=== PATIENT | male | born 1960 | race Two or more races ===

== ENCOUNTER 2017-01-29 06:55 | Inpatient (IN) | payer OTHER ==
[~2017-01-29] VITALS: Ht 172.7 cm; Wt 81.2 kg
[2017-01-29] MEDS ORDERED: oxyCODONE HCL SR 10MG TAB.SR.12H PO ONE (07:52)
[2017-01-29] MEDS ORDERED: CELECOXIB 100 MG CAPSULE ONE (07:52)
[2017-01-29] MEDS ORDERED: ACETAMINOPHEN 325 MG TABLET ONE (07:52)
[2017-01-29] MEDS ORDERED: CEFAZOLIN SODIUM/DEXTROSE,ISO 50 ML IV ONE (07:53)
[2017-01-29] MEDS ORDERED: KETOROLAC TROMETHAMINE INJ 30 MG/ML VIAL ONE (09:11)
[2017-01-29] MEDS ORDERED: BACITRACIN 50000 UNITS/VIAL ONE (09:11)
[2017-01-29] MEDS ORDERED: BUPIVACAINE 0.5 % PF 150 MG/30 ML VIAL ONE (09:11)
[2017-01-29] MEDS ORDERED: MIDAZOLAM HCL 2 MG/2ML VIAL ONE (09:44)
[2017-01-29] MEDS ORDERED: FENTANYL PF 100MCG/2ML AMPUL ONE ×3 (09:44→11:50)
[2017-01-29] MEDS ORDERED: TRANEXAMIC ACID 3,000 MG in SODIUM CHLORIDE IRRIG SOLUTION 70 ML IR ONE (10:30)
[2017-01-29 12:30] VITALS: BP 116/70
[2017-01-29] MEDS ORDERED: BISACODYL SUPP (10 MG) 10 MG/SUPP.RECT SUPP.RECT RC PRN (12:30)
[2017-01-29] MEDS ORDERED: ZOLPIDEM TARTRATE 5 MG TABLET PO PRN (12:30)
[2017-01-29] MEDS ORDERED: DOCUSATE SODIUM 250 MG CAPSULE PO PRN (12:30)
[2017-01-29] MEDS ORDERED: ACETAMINOPHEN 325 MG TABLET PO PRN (12:30)
[2017-01-29] MEDS ORDERED: HYDROCODONE/APAP 5/325MG 1 EACH TABLET PO PRN (12:30)
[2017-01-29] MEDS ORDERED: SENNOSIDES 8.6 MG TABLET PO PRN (12:30)
--- NOTE | 2017-01-29 12:30 | NUR ---
ADMITTION RN NOTES3 Admitted from OR, S/P left total hip anthroplasty done by David Crane. Alert and oriented in stable condition. at bedside. No SOB noted. Breathing even , non labored. No sign of distress noted. Left hip sx incision with dressing intact, clean , no drainage noted. With bhatti catheter intact, yellow, no sediments, no blood noted. IV site on right wrist, patent, no s/sx of infiltration noted. Call light placed within reach. Needs attended. Will continue to monitor.
[2017-01-29] MEDS: ONDANSETRON HCL/PF 4 MG/2 ML VIAL IVP PRN (13:09)
[2017-01-29] MEDS: MORPHINE SULFATE INJ 4 MG/ML DISP.SYRIN IV PRN ×2 (14:28→17:51)
[2017-01-29] MEDS: IV LR 1000 ML 1,000 ML IV PRN (14:37)
[2017-01-29 16:00] VITALS: BP 149/81
[2017-01-29] MEDS: ANCEF 1 GM/50 ML D5W IV SCH ×2 (18:00)
--- NOTE | 2017-01-29 19:06 | NUR ---
MS RN CLOSING NOTES Patient alert and oriented in stable condition. at bedside. No SOB noted. Breathing even , non labored. No sign of distress noted. Left hip sx incision with dressing intact, clean , no drainage noted. Katz catheter intact, yellow, no sediments noted. IV site on right wrist, patent, no s/sx of infiltration noted. Call light within reach. Needs attended. Due meds given, no ASE noted. Evaluated by PT. Endorsed to incoming shift
--- NOTE | 2017-01-29 19:30 | NUR ---
MS RN NOTES RECEIVED PT IN BED, AWAKE, A/O X 4. VERBALLY RESPONSIVE. NO DISTRESS, NO SOB NOTED. RESPIRATION IS EVEN AND UNLABORED. IV SITE ON RIGHT WRIST INTACT AND PATENT, NO S/S OF INFILTRATION NOTED. IVF INFUSING WELL. FC IS INTACT AND PATENT DRAINING WELL WITH YELLOW URINE. SURGICAL SITE ON LEFT HIP CLEAN AND INTACT. NO C/O PAIN OR DISCOMFORT AT THIS TIME. ABDUCTOR PILLOW IN PLACE. ALL NEEDS ATTENDED AND MET. CALL LIGHT WITHIN REACH . WILL CONT TO MONITOR.
[2017-01-29 20:00] VITALS: BP 158/90
[2017-01-29] MEDS ORDERED: DRONABINOL (2.5 MG) 2.5 MG CAPSULE PO ONE ×2 (22:15→22:29)
[2017-01-29] MEDS: DRONABINOL (2.5 MG) 2.5 MG CAPSULE PO SCH (22:30)
[2017-01-29] MEDS ORDERED: MENTHOL/CETYLPYRD (CEPACOL) 1 LOZ LOZENGE PO PRN (22:30)
[2017-01-29] MEDS ORDERED: CLONIDINE HCL 0.1 MG TABLET PO PRN (22:30)
[2017-01-29] MEDS ORDERED: diphenhydrAMINE HCL 25 MG CAPSULE PO PRN (22:30)
[2017-01-29] MEDS ORDERED: MORPHINE SULFATE INJ 4 MG/ML DISP.SYRIN IV PRN (22:30)
[2017-01-29] MEDS ORDERED: MAG HYDROX/AL HYDROX/SIMETH 30 ML UDC PO PRN (22:30)
--- NOTE | 2017-01-29 22:30 | NUR ---
PT WAS SEEN BY DR. MAX.
[2017-01-29] MEDS ORDERED: PANTOPRAZOLE 40 MG TABLET.DR PO ONE (22:31)
[2017-01-29] MEDS: PANTOPRAZOLE 40 MG TABLET.DR PO SCH (23:11)
--- NOTE | 2017-01-29 23:19 | NUR ---
marinol 2.5 mg given at 2311
[2017-01-30] MEDS: ONDANSETRON HCL/PF 4 MG/2 ML VIAL IVP PRN (00:02)
[2017-01-30] MEDS ORDERED: MORPHINE SULFATE INJ 4 MG/ML DISP.SYRIN ONE (00:53)
[2017-01-30] MEDS: ANCEF 1 GM/50 ML D5W IV SCH ×2 (01:23)
[2017-01-30] MEDS: IV LR 1000 ML 1,000 ML IV PRN (03:20)
[2017-01-30] MEDS ORDERED: PROMETHAZINE HCL 25 MG/ML AMPUL ONE (03:56)
--- NOTE | 2017-01-30 04:15 | NUR ---
PT C/O LEFT HIP PAIN 08/03 OFFERED MS04 BUT PT REFUSED, PER PT MS04 IS CAUSING HIM TO FEEL NAUSEATED AND TO VOMIT AND ALSO IT GIVES HIM HOT FLUSHES, CHARGE NURSE LANA AWARE AND WILL ENDORSE TO NEXT SHIFT. OFFERED ICE PACK , PER PT ICE PACKS HELPS WITH HIS PAIN . WILL CONT TO MONITOR .
[2017-01-30] MEDS: PROMETHAZINE HCL 50 MG/ML AMPUL IM PRN (04:48)
--- NOTE | 2017-01-30 04:48 | NUR ---
PT STILL C/O NAUSEA, AND NOTED WITH VOMITING X 3, PER PT ZOFRAN IS INEFFECTIVE. ALL SCHWARTZ RN OVER RIDE MEDICATION. PHENERGAN 12.5 = 0.25ML GIVEN ORDERED, WITNESSED BY ALL SCHWARTZ RN WILL CONT TO MONITOR. BP : 159/68, HR : 83, 02 SAT : 99, RR: 16, WILL CONT TO MONITOR.
[2017-01-30] MEDS ORDERED: RIVAROXABAN 10 MG TABLET PO SCH (06:00)
[2017-01-30] MEDS ORDERED: CLONIDINE HCL 0.1 MG TABLET ONE (06:02)
--- NOTE | 2017-01-30 06:30 | NUR ---
PT REFUSED XARELTO , RISK AND BENEFITS EXPLAINED, PT STILL REFUSED X 3. WILL ENDORSE TO NEXT SHIFT, CHARGE NURSE AWARE. WILL CONT TO MONITOR.
--- NOTE | 2017-01-30 06:53 | NUR ---
MS RN NOTES PT IN BED, AWAKE, A/O X 4. VERBALLY RESPONSIVE. NO DISTRESS, NO SOB NOTED. RESPIRATION IS EVEN AND UNLABORED. IV SITE ON RIGHT WRIST INTACT AND PATENT, NO S/S OF INFILTRATION NOTED. IVF INFUSING WELL. FC IS INTACT AND PATENT DRAINING WELL WITH YELLOW URINE, NO HEMATURIA NOTED. SURGICAL SITE ON LEFT HIP WITH CLEAN AND INTACT DRESSING. NO C/O PAIN OR DISCOMFORT AT THIS TIME. ABDUCTOR PILLOW IN PLACE. PT STILL C/O NAUSEA BUT PER PT IT'S GETTING BETTER. ALL NEEDS ATTENDED AND MET. CALL LIGHT WITHIN REACH . WILL ENDORSE TO NEXT SHIFT FOR MILAGRO.
[2017-01-30 07:19] LABS: HEMOGLOBIN 14.9 g/dL (13.5-17.5)
[2017-01-30 08:00] VITALS: BP 153/103
--- NOTE | 2017-01-30 08:00 | NUR ---
MS RN AM NOTES PT IN BED, AWAKE, A/O X 4. VERBALLY RESPONSIVE. NO DISTRESS, NO SOB NOTED. RESPIRATION IS EVEN AND UNLABORED. IV SITE ON RIGHT WRIST INTACT AND PATENT, NO S/S OF INFILTRATION NOTED. IVF INFUSING WELL. FC IS INTACT AND PATENT DRAINING WELL WITH YELLOW URINE, NO HEMATURIA NOTED. SURGICAL SITE ON LEFT HIP WITH CLEAN AND INTACT DRESSING. NO C/O PAIN OR DISCOMFORT AT THIS TIME. ABDUCTOR PILLOW IN PLACE. NEEDS ATTENDED AND MET. CALL LIGHT WITHIN REACH
[2017-01-30] MEDS: DRONABINOL (2.5 MG) 2.5 MG CAPSULE PO SCH ×2 (09:58→20:40)
[2017-01-30] MEDS ORDERED: oxyCODONE IR immediate release 5 MG CAPSULE PO ONE (12:05)
[2017-01-30] MEDS ORDERED: ONDANSETRON HCL/PF 4 MG/2 ML VIAL IV ONE (12:05)
[2017-01-30] MEDS: oxyCODONE IR immediate release 5 MG CAPSULE PO PRN ×4 (12:20→22:57)
--- NOTE | 2017-01-30 12:22 | NUR ---
OXYIR WAS GIVEN AT 1220 .
[2017-01-30] MEDS: RIVAROXABAN 10 MG TABLET PO SCH (12:30)
[2017-01-30] MEDS ORDERED: TAMSULOSIN 0.4 MG CAP.SR.24H PO ONE (12:30)
[2017-01-30 16:00] VITALS: BP 166/10
--- NOTE | 2017-01-30 18:11 | NUR ---
MS RN CLOSING NOTES PT IN BED, AWAKE , A/O X 4. VERBALLY RESPONSIVE. NO SOB NOTED, NO DISTRESS NOTED. RESPIRATION EVEN AND UNLABORED. IV SITE ON RIGHT WRIST INTACT AND PATENT, NO S/S OF INFILTRATION NOTED. IVF INFUSING WELL. FC REMOVED @1214 TOLERATED WELL, ABLE TO VOID WITHOUT DIFFICULTY . SURGICAL SITE ON LEFT HIP WITH CLEAN AND INTACT DRESSING. DUE MEDICATIONS GIVEN, NO ASE NOTED. ABDUCTOR PILLOW IN PLACE. NEEDS ATTENDED AND MET. CALL LIGHT PLACED WITHIN REACH
--- NOTE | 2017-01-30 19:30 | NUR ---
MS RN NOTES RECEIVED PT IN BED, AWAKE, A/O X 4. VERBALLY RESPONSIVE. NO DISTRESS, NO SOB NOTED. RESPIRATION IS EVEN AND UNLABORED. IV SITE ON RIGHT WRIST INTACT AND PATENT, NO S/S OF INFILTRATION NOTED. IVF INFUSING WELL. SURGICAL SITE ON LEFT HIP CLEAN, DRY AND INTACT. NO C/O PAIN OR DISCOMFORT AT THIS TIME. ALL NEEDS ATTENDED AND MET. CALL LIGHT WITHIN REACH . WILL CONT TO MONITOR.
--- NOTE | 2017-01-30 19:30 | NUR ---
MS RN NOTES RECEIVED PT IN BED, AWAKE, A/O X 4. VERBALLY RESPONSIVE. NO DISTRESS, NO SOB NOTED. RESPIRATION IS EVEN AND UNLABORED. IV SITE ON RIGHT WRIST INTACT AND PATENT, NO S/S OF INFILTRATION NOTED. IVF INFUSING WELL. FC IS INTACT AND PATENT DRAINING WELL WITH YELLOW URINE. SURGICAL SITE ON LEFT HIP CLEAN AND INTACT. NO C/O PAIN OR DISCOMFORT AT THIS TIME. ALL NEEDS ATTENDED AND MET. CALL LIGHT WITHIN REACH . WILL CONT TO MONITOR. Addendum: 01/31/17 at 0159 by MORENA ESCOBEDO RN INCORRECT DOCUMENTATION
[2017-01-30 20:00] VITALS: BP 148/95
[2017-01-30] MEDS: PANTOPRAZOLE 40 MG TABLET.DR PO SCH (22:57)
[2017-01-31] MEDS: IV LR 1000 ML 1,000 ML IV PRN (01:12)
[2017-01-31] MEDS ORDERED: oxyCODONE IR immediate release 5 MG CAPSULE ONE ×2 (02:32→06:07)
[2017-01-31] MEDS: oxyCODONE IR immediate release 5 MG CAPSULE PO PRN ×5 (02:56→23:12)
--- NOTE | 2017-01-31 03:30 | NUR ---
PER ARLETH RN, SHE WAS ABOUT TO CHECK THE PATIENT, PATIENT STATED HE HAS RX MARIJUANA DROPS FOR PAIN AND WAS OFFERING MEDICATION TO PATIENT IN BED-1, WHEN SHE TRIED TO CONFISCATE THE MEDICATION FROM PATIENT, PATIENT REFUSED AND CHARGE NURSE WAS NOTIFIED. CHARGE NURSE TALKED TO THE PT AND ASKED TO CHECK THE MEDICATION CAUSE PT NOT ALLOWED TO KEEP MEDICATIONS AT BED SIDE. , PT VERBALIZED " YOU'RE NOT TAKING MY MEDICATION , IT'S MINE!". RISK AND BENEFITS EXPLAINED, PT STILL REFUSED TO HAVE HIS MEDICATION CHECKED. SUZI, SUPERVISOR EDGING MADE AWARE AND MADE MD AWARE IN AM.
--- NOTE | 2017-01-31 05:27 | NUR ---
DR. TOVAR MADE AWARE REGARDING PT OFFERING MARIJUANA DROPS TO HIS ROOM MATE, AND THAT PT REFUSED FOR THE CHARGE NURSE TO CHECK AND KEEP THE MEDICATION, AND ALSO, RISK AND BENEFITS EXPLAINED TO THE PT, BUT PT STILL REFUSED.
--- NOTE | 2017-01-31 06:42 | NUR ---
MS RN NOTES PT IN BED, RESTING COMFORTABLY, AROUSES EASILY, A/O X 4. VERBALLY RESPONSIVE. NO DISTRESS, NO SOB NOTED. RESPIRATION IS EVEN AND UNLABORED. IV SITE ON RIGHT WRIST INTACT AND PATENT, NO S/S OF INFILTRATION NOTED. IVF INFUSING WELL. SURGICAL SITE ON LEFT HIP CLEAN, DRY AND INTACT. NO C/O PAIN OR DISCOMFORT AT THIS TIME. ALL NEEDS ATTENDED AND MET. CALL LIGHT WITHIN REACH. WILL ENDORSE TO NEXT SHIFT FOR MILAGRO.
--- NOTE | 2017-01-31 07:30 | NUR ---
MS RN OPENING RECEIVED PATIENT A/OX4 SLEEPING AWAKE TO LIGHT TOUCH. PATIENT DENIES SOB, DIFFICULTY BREATHING AND PAIN CONTROLLED WITH PRN MEDICATIONS. PATIENT APPEARS STABLE AT THIS TIME. IVF RUNNING ORDERED. NO S/S INFILTRATION ON IV SITE. WILL ROUND Q2H OR LESS PER NEEDS. PATIENT BED LOWERED AND LOCKED, RAILS UPX3 FOR SAFETY NEEDS IN REACH.
[2017-01-31 08:00] VITALS: BP 134/87
[2017-01-31] MEDS: DRONABINOL (2.5 MG) 2.5 MG CAPSULE PO SCH ×2 (08:32→21:14)
--- NOTE | 2017-01-31 10:05 | NUR ---
MS RN NOTE PATIENT SLEEPING COMFORTABLY AT THIS TIME.
--- NOTE | 2017-01-31 11:35 | NUR ---
MS RN NOTES PATIENT UP WALKING WITH PHYSICAL THERAPY. VIRA CHANGED DRESSING LEFT HIP.
--- NOTE | 2017-01-31 11:46 | NUR ---
MS RN NOTES PER DR HAZEL BAIRD OK TO DC LR PATIENT HAS GOOD ORAL INTAKE
[2017-01-31] MEDS: PROMETHAZINE HCL 50 MG/ML AMPUL IM PRN (12:01)
[2017-01-31] MEDS ORDERED: MAGNESIUM CITRATE 296 ML BOTTLE PO PRN (12:30)
[2017-01-31] MEDS ORDERED: BISACODYL SUPP (10 MG) 10 MG/SUPP.RECT SUPP.RECT RC PRN (12:30)
--- NOTE | 2017-01-31 12:54 | NUR ---
ms rn notes notified dr hood hu dc planning; dc tomorrow 02/01. per ok to hold dc till tomorrow
[2017-01-31 16:00] VITALS: BP 130/86
--- NOTE | 2017-01-31 17:47 | NUR ---
MS RN NOTES PATIENT REFUSING XARELTO AT THIS TIME. WILL NOTIFY ME WHEN HE WILL TAKE
[2017-01-31] MEDS: RIVAROXABAN 10 MG TABLET PO SCH (18:57)
--- NOTE | 2017-01-31 19:10 | NUR ---
RN OPEN NOTES RECEIVED PATIENT AWAKE IN BED. A/O X4. NO SIGNS OF DISTRESS OR DISCOMFORT. BREATHING EVEN AND UNLABORED. IV ACCESS IN R WRIST, PATENT AND INTACT, NO SIGNS OF REDNESS OR INFILTRATION. STATES PAIN 7/10 IN L HIP, AND WAS JUST GIVEN OXY IR FOR PAIN MANAGEMENT. BED IN LOW LOCKED POSITION WITH SIDE RAILS X2. CALL LIGHT WITHIN REACH. WILL CONTINUE TO MONITOR.
--- NOTE | 2017-01-31 19:20 | NUR ---
MS RN CLOSING PATIENT STABLE ALL DUE MEDS GIVEN AND ALL NEEDS MET. PAIN CONTROLLED WITH PRN MEDICATIONS AND NON PHARM MEASURES. ALL NEEDS IN REACH. BED LOWERED AND LOCKED, RAILS UXP3 FOR SAFETY AND CARE ENDORSED TO NORMAN REINOSO.
[2017-01-31 20:00] VITALS: BP_SYST 114; BP_SYST 120; BP_DIAS 71
[2017-01-31] MEDS: PANTOPRAZOLE 40 MG TABLET.DR PO SCH (21:14)
--- NOTE | 2017-01-31 23:12 | NUR ---
RN NOTES ADMINISTERED OXY IR 10MG ORDERED FOR PAIN 9/10 IN L HIP. VSS. WILL CONTINUE TO MONITOR.
[2017-02-01] MEDS: oxyCODONE IR immediate release 5 MG CAPSULE PO PRN ×3 (06:35→13:43)
--- NOTE | 2017-02-01 06:35 | NUR ---
RN NOTES ADMINISTERED OXY IR 10MG ORDERED FOR PAIN 9/10 IN L HIP. VSS. WILL CONTINUE TO MONITOR.
--- NOTE | 2017-02-01 06:58 | NUR ---
RN CLOSING NOTES PATIENT AWAKE IN BED. A/O X4. NO SIGNS OF DISTRESS OR DISCOMFORT. BREATHING EVEN AND UNLABORED. IV ACCESS IN R WRIST, PATENT AND INTACT, NO SIGNS OF REDNESS OR INFILTRATION. CURRENTLY PAIN 8/10 IN L HIP, AND PATIENT WAS JUST GIVEN OXY IR FOR PAIN MANAGEMENT. ALL NEEDS MET. NO SIGNIFICANT CHANGES THROUGH THE NIGHT. BED IN LOW LOCKED POSITION WITH SIDE RAILS X2. CALL LIGHT WITHIN REACH. WILL ENDORSE TO AM SHIFT FOR MILAGRO.
--- NOTE | 2017-02-01 07:20 | NUR ---
MS RN OPENING NOTE RECEIVED SBAR REPORT AT THE BEDSIDE. PATIENT IS A/OX4 SLEEPING IN BED, EASILY AWAKEN. PATIENT DENIES SOB, DIFFICULTY BREATHING AND REPORTS PAIN CONTROLLED WITH RECENTLY ADMINISTERED PRN ANALGESIC. R/WRIST IV IS INTACT/SL. NO S/S INFILTRATION ON IV SITE. L/HIP INCISION COVERED WITH A CLEAN, DRY INTACT DRESSING. BED IS LOCKED, IN LOWEST POSITION, SIDE RAILS UP X2, BED ALARM IS ON. PATIENT IS IN BOOGIE'S POSITION. ALL NEEDS MET AT THIS TIME. CALL LIGHT WITHIN REACH. PATIENT WAS EDUCATED TO USE THE CALL LIGHT TO CALL FOR ASSISTANCE AND VERBALIZED FULL UNDERSTANDING OF THE TEACHINGS. WILL CONTINUE TO ASSESS/MONITOR THROUGHOUT THE SHIFT.
[2017-02-01 08:00] VITALS: BP 138/71
[2017-02-01] MEDS: DRONABINOL (2.5 MG) 2.5 MG CAPSULE PO SCH (08:09)
[2017-02-01 08:30] VITALS: BP 138/71
--- NOTE | 2017-02-01 11:08 | NUR ---
MS RN NOTE PATIENT WAS COMPLAINING OF ACUTE PAIN IN L/HIP. PRN OXY IR 10 MG ADMINISTERED PRESCRIBED. WILL REASSESS MEDICATION EFFECTIVENESS AT TIME DUE.
--- NOTE | 2017-02-01 13:43 | NUR ---
MS RN NOTE PATIENT COMPLAINS OF SHARP PAIN RATING 9/10 ON A PAIN SCALE. PRN PAIN MEDICATION ADMINISTERED PRESCRIBED.
--- NOTE | 2017-02-01 14:08 | NUR ---
MS RN NOTE DISCHARGE ORDER RECEIVED. DISCHARGE INSTRUCTIONS PROVIDED TO THE PATIENT VIA TEACH BACK METHOD. PATIENT VERBALIZED FULL UNDERSTANDING OF THE EDUCATION MATERIAL. FLU VACCINE OFFERED AND REFUSED. ALL BELONGINGS ARE ACCOUNTED FOR. IV CATHETER REMOVED WITH THE TIP INTACT. OCCLUSIVE DRESSING APPLIED. PICTURE OF LEFT HIP INCISION IS TAKEN AND PLACED IN THE CHART. PATIENT IS SCHEDULED TO BE PICKED UP BY THE AMBULANCE AT 14:30. [PATIENT IS GOING TO [facility] AND [facility]. TELEPHONE REPORT IS GIVEN TO VERÓNICA AUSTIN AT RECEIVING FACILITY ( [facility]). PATIENT IS STABLE. VS WNL. ALL NEEDS ARE MET AT THIS TIME. PAIN IS CONTROLLED BY THE MEDICATION.
--- NOTE | 2017-02-01 14:40 | NUR ---
MS TIMBER SURVEYOR NOTE PATIENT LEFT THE UNIT VIA GURNEY ACCOMPANIED BY AMBULANCE STAFF IN STABLE CONDITION.
== END 2017-02-01 14:35 | DRG 470 ==
LOC: DS 06:55 → MED 12:11 → EDSEX 14:35
PROC: 0SRB01Z Replacement of Left Hip Joint with Metal Synthetic Substitute, Open Approach (ICD-10-PCS; principal; 2017-01-29 10:14)
DX: M16.12 Unilateral primary osteoarthritis, left hip (principal); F12.90 Cannabis use, unspecified, uncomplicated; I10 Essential (primary) hypertension; X58.XXXA Exposure to other specified factors, initial encounter; Z86.018 Personal history of other benign neoplasm; Z79.01 Long term (current) use of anticoagulants; Z98.890 Other specified postprocedural states; I45.10 Unspecified right bundle-branch block
CPT/HCPCS: 36415; 85027-TC; 86850-TC; 86921-TC; 87081-TC; 88305-TC; 88311-TC; 97110-TC; 97116-TC; 97530-TC; A4217; A6209; A6402; J0690; J1885; J2250; J2270; J2405; J2550; J2704; J3010; J3490; J7060; J7120; Q0167; Z7610